=== PATIENT | male | born 1965 | race Caucasian/White ===

== ENCOUNTER 2023-09-28 09:36 | Emergency (ER) | payer MEDICAID ==
[~2023-09-28] VITALS: Ht 182.8 cm; Wt 80.0 kg
[~2023-09-28 09:36] MED LIST: ACHYD1T PO; CLON2TAB12 PO; DIPH25CA79 PO; FLUO40CA PO; FLUO40CA12 PO; GABA-488 PO; HYDR1TAB8 PO; LISI40TA9 PO; METO50TA15 PO; PANT40TA2 PO; TIZA-186 PO; ZOLP10TA5 PO
--- NOTE | 2023-09-28 10:21 | ED Fall/Injury ---
General Chief Complaint: Back Problems Stated Complaint: FALL | RIB AND SHOULDER PAIN Nursing Triage Note: PT AMB TO [facility] WITH C/O RIB AND BACK PAIN X1 WEEK AFTER FALLING WHILE HELPING HIS MOTHER MOVE. 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 The tool and the palate fell on top of him when he fell backward down the stairs. He denies head or neck injury with no loss of consciousness. However. he has experience persistent severe pain in the mid right upper back and right lower chest and upper abdomen. He has pain with deep breathing and movement. VSS with acceptable hypertension. This is his first medical visit for these symptoms. Allergies and Home Medications Allergies Coded Allergies: No Known Drug Allergies (Unverified , 10/08/16) Patient Home Medication List Home Medication List Reviewed: Yes Clonazepam (Clonazepam) 2 Mg Tablet, 2 MG PO TID PRN for ANXIETY, (Reported) Entered as Reported by: DYLLAN MCMAHON on 10/28/15 235 Fluoxetine HCl (Fluoxetine HCl) 40 Mg Capsule, 40 MG PO DAILY, (Reported) Entered as Reported by: NOLAN MCDOWELL on 10/29/15 0803 Hydrocodone/Acetaminophen (Hydrocodone-Acetamin 5-325 mg) 5 Mg-325 Mg Tablet, 1 TAB PO Q4H PRN for PAIN-MODERATE TO SEVERE Prescribed by: REY ROGERS on 09/28/23 1102 Lisinopril (Lisinopril) 40 Mg Tablet, 40 MG PO DAILY, (Reported) Entered as Reported by: DYLLAN MCMAHON on 10/28/15 235 Metoprolol Tartrate (Metoprolol Tartrate) 50 Mg Tablet, 100 MG PO HS, (Reported) Entered as Reported by: DYLLAN MCMAHON on 10/28/15 2354 Metoprolol Tartrate (Metoprolol Tartrate) 50 Mg Tablet, 50 MG PO DAILY, (Reported) Entered as Reported by: VERA ALLEN on 05/31/16 0910 Review of Systems Review of Systems Constitutional: no symptoms reported Eyes: No Symptoms Reported Ears, Nose, Mouth, Throat: no symptoms reported Respiratory: see HPI Cardiovascular: no symptoms reported Gastrointestinal: see HPI Genitourinary: no symptoms reported Musculoskeletal: see HPI Skin: no symptoms reported Psychiatric/Neurological: No Symptoms Reported Past Mnljbuc-Qiwmze-Zcokua Hx Patient Social History Tobacco Use?: Yes Tobacco type used: Cigarettes Substance use?: No Alcohol Use?: No Pt feels they are or have been: No Immunizations Up To Date Tetanus Booster (TDap): Less than 5yrs Influenza Vaccine Up-to-Date: No; Not Current Seasonal Allergies Seasonal Allergies: No Past Medical History Surgery/Hospitalization HX: HTN, DEPRESSION, CHF BILAT ARM SURGERIES Surgeries: Yes Orthopedic (traum to UEs. Hardware in left arm) Respiratory: No Cardiac: Yes Hypertension Neurological: No Reproductive Disorders: No Genitourinary: No Gastrointestinal: No Gastroesophageal Reflux Musculoskeletal: Yes Chronic Back Pain HEENT: Yes Tinnitis Cancer: No Psychosocial: Yes Sleep Difficulties, Anxiety, PTSD, Suicide Attempts, Bipolar, Personality Disorder, Violent Behavior, Depression Adverse Reaction/Blood Tranf: No Family Medical History Diabetes mellitus 19 MOTHER Drug abuse G8 SISTER Neoplasm G8 SISTER (1/2 sister--breast cancer ) Psychosocial problem 19 MOTHER (depression) G8 SISTER (depression) Diabetes, Psychiatric Problems Physical Exam Vital Signs Vital Signs - First Documented 09/28/23 09:47 Temp 35.1 Pulse 88 Resp 16 B/P (MAP) 151/100 (117) Pulse Ox 98 O2 Delivery Room Air Capillary Refill : Height, Weight, BMI Height: 6'0.00" Weight: 147lbs. 1.0oz. 66.899385ck; 23.00 BMI Method:Estimated General Appearance: WD/WN, mild distress HEENT: PERRL/EOMI, normal ENT inspection Neck: non-tender, normal inspection Cardiovascular: regular rate, rhythm, no edema, no murmur Respiratory: lungs clear, normal breath sounds, no respiratory distress, other (right lower anterior chest mildly TTP. Splinting respirations) Gastrointestinal: normal bowel sounds, non tender, soft; No distended; other (TTP is over the chest wall and not the abdomen) Extremities: normal inspection, no pedal edema Neurologic/Psychiatric: no motor/sensory deficits, alert, normal mood/affect, oriented x 3 Skin: normal color, warm/dry, other (abrasion and bruising near the medial edge of the righ scapula) Temple Coma Score Best Eye Response: (4) Open Spontaneously Best Verbal Response: (5) Oriented Best Motor Response: (6) Obeys Commands Katie Total: 15 Progress/Results/Core Measures Results/Orders My Orders Orders - REY KIM MD Ct Chest Wo (09/28/23 09:57) Vital Signs/I&O 09/28/23 09/28/23 09:47 11:41 Temp 35.1 35.1 Pulse 88 80 Resp 16 16 B/P (MAP) 151/100 (117) 140/94 Pulse Ox 98 98 O2 Delivery Room Air Room Air Blood Pressure Mean: 117 Progress Progress Note : Progress Note CT was ordered based on focused area of injury and exam. CT was viewed by me. Two right posterior rib fractures were noted on my interpretation with no underlying pneumothorax or hemothorax. CT report below was also reviewed. Instructions reviewed with patient. He was encourage to control pain to promote adequate respirations, to reduce/stop smoking, and to exercise deep breathing. I received a call from the pharmacy after the patient's discharge inquiring about the hydrocodone Rx in the context of a Suboxone Rx. I explained that pain control was very important for management of fractured ribs. I suggested that the patient discuss any concerns about using hydrocodone in lieu of Suboxone during the acute treatment of rib fractures. Diagnostic Imaging Diagonstic Imaging: CT Plain Films/CT/US/NM/MRI: chest Comments NAME: VICTORINA HARDIN MED REC#: [id number] PT STATUS: REG ER : 1965 PHYSICIAN: REY KIM MD ADMIT DATE: 09/28/23/ER Draft Date of Exam:09/28/23 CT CHEST WO PROCEDURE: CT chest without contrast. TECHNIQUE: Multiple contiguous axial images were obtained through the chest without the use of intravenous contrast. Auto Exposure Controls were utilized during the CT exam to meet ALARA standards for radiation dose reduction. INDICATION: Trauma, fall down stairs with chest and back pain. FINDINGS: No definite mediastinal hematoma is identified. No pericardial or pleural fluid is detected. No pulmonary contusion is identified. There is some minimal atelectasis in the right lower lobe. There is no pneumothorax. Old right clavicle fracture is noted. There are acute fractures involving the right-sided posterior seventh and eighth ribs. Thoracic spine is unremarkable. No spinal fractures are seen. IMPRESSION: Right posterior seventh and eighth rib fractures. No pneumothorax is identified. There is some minimal atelectasis in the bilateral lower lobes. Dictated on workstation # [id number] Dict: 09/28/23 1046 Trans: 09/28/23 1102 [id number] [id number] Interpreted by: STEVIE VILLATORO MD Departure Impression Primary Impression: Multiple rib fractures Qualified Codes: S22.41XA - Multiple fractures of ribs, right side, initial encounter for closed fracture Additional Impression: Fall down stairs Qualified Codes: W10.8XXA - Fall (on) (from) other stairs and steps, initial encounter Disposition: HOME, SELF-CARE Condition: Stable Departure-Patient Inst. Decision time for Depature: 10:56 Referrals: KARLA ALICEA DO (PCP/Family) Primary Care Physician Patient Instructions: Rib fractures in adults Add. Discharge Instructions: You have rib fractures on the seventh and eighth ribs. These fractures will likely take 6 to 8 weeks to heal. You should have gradually decreasing pain during that time. Pain may be treated with Tylenol (acetaminophen) up to 1000 mg every 6 hours as needed. Use hydrocodone as prescribed for more severe pain. When taking hydrocodone, please pay attention to total dosing of acetaminophen and do not exceed more than 4000 mg of acetaminophen in 1 day. Hydrocodone may also cause drowsiness, so do not drive, operate machinery, or make important de cisions while on hydrocodone. Hydrocodone may also cause constipation, so you may wish to use a stool softener such as Colace while taking hydrocodone. Avoid use of NSAID medications such as ibuprofen or naproxen for the first few weeks of bony healing. These NSAID medications may delay bone healing. Topical treatments such as lidocaine patches and or icing may also be beneficial. To help prevent pneumonia, you should reduce your smoking significantly and quit if possible. You should also exercise deep breathing. It is recommended that you exercise deep breathing at least 10 times per hour while awake. These exercises can be done by taking in as deep of a breath as possible and blowing it out completely. Drink plenty of clear liquids to stay well-hydrated. Avoid heavy lifting and strenuous activity until these fractures have healed which will likely take 6 to 8 weeks. Return to care if you are having worsening symptoms despite following these instructions or if you are not improving as expected ove r the next several weeks. You may need to follow-up with your primary care provider if additional prescriptions for pain control are needed. All discharge instructions reviewed with patient and/or family. Voiced understanding. Scripts Hydrocodone/Acetaminophen (Hydrocodone-Acetamin 5-325 mg) 5 Mg-325 Mg Tablet 1 TAB PO Q4H PRN for PAIN-MODERATE TO SEVERE, #20 TAB Prov: REY KIM MD 09/28/23 Copy Copies To 1: KARLA ALICEA JOSHUA T MD Sep 28, 2023 10:21
[2023-09-28] MEDS ORDERED: ACHD5005 PO (11:02)
--- NOTE | 2023-09-28 11:03 | Diagnostic Imaging Report ---
PROCEDURE: CT chest without contrast. TECHNIQUE: Multiple contiguous axial images were obtained through the chest without the use of intravenous contrast. Auto Exposure Controls were utilized during the CT exam to meet ALARA standards for radiation dose reduction. INDICATION: Trauma, fall down stairs with chest and back pain. FINDINGS: No definite mediastinal hematoma is identified. No pericardial or pleural fluid is detected. No pulmonary contusion is identified. There is some minimal atelectasis in the right lower lobe. There is no pneumothorax. Old right clavicle fracture is noted. There are acute fractures involving the right-sided posterior seventh and eighth ribs. Thoracic spine is unremarkable. No spinal fractures are seen. IMPRESSION: Right posterior seventh and eighth rib fractures. No pneumothorax is identified. There is some minimal atelectasis in the bilateral lower lobes. Dictated by: Dictated on workstation # [id number]
[2023-09-28 11:41] VITALS: BP 140/94
== END 2023-09-28 11:42 | disposition home or self-care (01) ==
LOC: EDUNIT# 09:36 → ER 09:39
DX: S22.41XA Multiple fractures of ribs, right side, initial encounter for closed fracture (principal); F17.210 Nicotine dependence, cigarettes, uncomplicated; W10.9XXA Fall (on) (from) unspecified stairs and steps, initial encounter
CPT/HCPCS: 71250